=== PATIENT | female | born 1955 ===

== ENCOUNTER 2022-02-19 05:49 | Day surgery (SDC) | payer OTHER ==
[~2022-02-19] VITALS: Ht 162.6 cm; Wt 72.6 kg
[~2022-02-19 05:49] MED LIST: COZAAR25 MG PO; ZOCOR20 MG PO
== END 2022-02-19 14:50 | disposition home or self-care (01) ==
LOC: CIR.AMB 05:49
PROVIDERS: ATTEND Surgery
DX: K80.10 Calculus of gallbladder with chronic cholecystitis without obstruction (principal); Z20.822 Contact with and (suspected) exposure to COVID-19; Z88.0 Allergy status to penicillin; I10 Essential (primary) hypertension